=== PATIENT | female | born 1990 | race Caucasian/White ===

== ENCOUNTER 2020-09-22 06:53 | Observation (INO) | payer MEDICAID ==
[~2020-09-22] VITALS: Ht 170.2 cm; Wt 109.0 kg
[2020-09-22] MEDS ORDERED: PLEASE ENTER HEIGHT AND WEIGHT MC SCH (07:30)
[2020-09-22] MEDS ORDERED: METOCLOPRAMIDE 5 MG/ML, 2ML IVPush ONE (07:30)
[2020-09-22] MEDS ORDERED: PLEASE ENTER ALLERGIES MC SCH (07:30)
[2020-09-22] MEDS ORDERED: SODIUM CITRATE/CITRIC ACID 30 ML UDC PO ONE (07:30)
[2020-09-22] MEDS ORDERED: AZITHROMYCIN 500 MG in SODIUM CHLORIDE 0.9% 250 ML IV ONE (07:30)
[2020-09-22] MEDS: LACTATED RINGERS 1,000 ML IV SCH ×2 (07:33→08:12)
[2020-09-22 07:57] VITALS: BP 122/68
[2020-09-22] MEDS ORDERED: METOCLOPRAMIDE 5 MG/ML, 2ML ONE (08:19)
[2020-09-22] MEDS ORDERED: SODIUM CITRATE/CITRIC ACID 15 ML UDC ONE (08:19)
[2020-09-22] MEDS ORDERED: FENTANYL PF 100 MCG/2ML ONE (08:41)
[2020-09-22 08:42] LABS: BASOPHILS % (AUTO) 1 % (0-1); EOSINOPHILS % (AUTO) 1 % (1-7); LYMPHOCYTES % (AUTO) 20 % (22-44); MD NO; MEAN CORPUSCULAR HEMOGLOBIN 28.1 pg (27.0-34.8); MEAN CORPUSCULAR HGB CONC 32.9 g/dL (32.4-35.8); MEAN PLATELET VOLUME 8.9 fL (7.4-10.4); MONOCYTES % (AUTO) 4 % (2-9); NEUTROPHILS % (AUTO) 75 % (42-75); PLATELET COUNT 324 x10^3/uL (130-400); RED BLOOD COUNT 4.19 x10^6/uL (3.82-5.3); RED CELL DISTRIBUTION WIDTH 15.6 % (9.6-15.2)
[2020-09-22] MEDS ORDERED: CEFAZOLIN 1,000 MG ONE (09:18)
[2020-09-22] MEDS ORDERED: MIDAZOLAM 1 MG/ML, 2ML ONE (09:21)
== END 2020-09-22 14:40 | disposition home or self-care (01) ==
LOC: LDOP 06:53 → LDIP 07:25
PROVIDERS: ADMIT Obstetrics & Gynecology Maternal & Fetal Medicine; ATTEND Obstetrics & Gynecology Maternal & Fetal Medicine
DX: O34.32 Maternal care for cervical incompetence, second trimester (principal); Z20.828 Contact with and (suspected) exposure to other viral communicable diseases; Z3A.14 14 weeks gestation of pregnancy; Z87.891 Personal history of nicotine dependence; Z87.2 Personal history of diseases of the skin and subcutaneous tissue
CPT/HCPCS: 36415; 59320; 85025; 87635; 96361; 96365; 96375; G0378; J0456; J0690; J2250; J2765; J3010; J7050; J7120; 96360; 96374